=== PATIENT | male | born 1960 | race Caucasian/White ===

== ENCOUNTER 2017-07-12 04:42 | Emergency (ER) | payer OTHER, MEDICAID ==
[~2017-07-12] VITALS: Ht 177.8 cm; Wt 95.0 kg
[~2017-07-12 04:42] MED LIST: LISI-363 PO; NAPR500 PO; OXYC20TA17 PO; ROBA750T3 PO
[2017-07-12 04:44] VITALS: BP 146/89; PULSE 84; RESP 16; TEMP 97.7; O2SAT 98
[2017-07-12 05:19] VITALS: BP 165/83; PULSE 70; RESP 18; O2SAT 99
--- NOTE | 2017-07-12 05:28 | PD ---
HPI . L flank pain Chief Complaint: Flank/Kidney Pain Time Seen by Provider: 05:08 Travel History International Travel<30 days: No Contact w/Intl Traveler<30days: No Traveled to known affect area: No History of Present Illness HPI Patient is a 57 year old male who presents with a 1 week history of worsening left flank pain. It was gradual in onset and now is constant dull stabbing sensation. The pain is rated 7/10. The pain is made worse with movement and he has not taken anything to make the pain better. He reports no trauma to the area and no heavy lifting, and no rash. He's felt feverish and had some night sweats and chills but no nausea, vomiting, hematuria, urinary discomfort, melena or hematochezia. He has never had prior symptoms, no history of kidney stones. He states he had a heart cath in 2012 that showed damage and has been told he has HTN and Hyperlipidemia but take no medication regularly. He is allergic to acetaminophen. He does not drink alcohol currently and has not smoked in 10 years. [facility] Past Medical History Cardiac Catheterization: Yes (NO STENTS) Cardiovascular Problems: Yes (HTN) COPD: Yes (PT UNSURE OF COPD) Diminished Hearing: No Hypertension: Yes Musculoskeletal: Yes (HERNIATED DISCS C1 C2 C3, L4 L5. SCIATICA. TRANSVERSE PROCESS.) Psychiatric: Yes (PTSD) Myocardial Infarction: Yes (2012?) Past Surgical History Tonsillectomy: Yes Family History Family Myocardial Infarction: Yes (FATHER) Social History Alcohol Use: No Tobacco Use: No ( ) Substance Use: Yes (MARIJUANA) Allergies-Medications (Allergen,Severity, Reaction): Coded Allergies: acetaminophen (Unverified Adverse Reaction, Severe, THROAT LOCKS UP , 07/12) Reported Meds & Prescriptions Reported Meds & Active Scripts Active No Active Prescriptions or Reported Medications Review of Systems Except as stated in HPI: all other systems reviewed are Neg General / Constitutional: Positive: Chills HENT: No: Headaches, Sore Throat, Rhinitis, Rhinorrhea Cardiovascular: No: Chest Pain or Discomfort Respiratory: No: Cough, Shortness of Breath, Wheezing Gastrointestinal: No: Nausea, Vomiting, Diarrhea Genitourinary: Positive: Hesitancy, Dribbling, No: Urgency, Frequency Musculoskeletal: No: Myalgias Skin: No Rash Neurologic: No: Weakness, Dizziness Physical Exam Narrative GENERAL: The patient was examined at bedside. He is alert and oriented 3 and in no acute distress. SKIN: Warm and dry. HEAD: Atraumatic. Normocephalic. EYES: Pupils equal and round. ENT: No nasal bleeding or discharge. Mucous membranes pink and moist. NECK: Trachea midline. CARDIOVASCULAR: Regular rate and rhythm. No murmurs or extra beats RESPIRATORY: No accessory muscle use. Some faint wheezing heard on exam. GASTROINTESTINAL: Abdomen mildly distended with no tenderness to palpation MUSCULOSKELETAL: No obvious deformities. No edema. No CVA tenderness NEUROLOGICAL: Awake and alert. No obvious cranial nerve deficits. Motor grossly within normal limits. Normal speech. PSYCHIATRIC: Appropriate mood and affect; insight and judgment normal. Data Data Last Documented VS Vital Signs Date Time Temp Pulse Resp B/P Pulse Ox O2 Delivery O2 Flow Rate FiO2 07/12/17 05:19 70 18 165/83 99 Room Air 07/12/17 04:44 97.7 Orders Basic Metabolic Panel (Bmp) (07/12/17 05:17) Complete Blood Count With Diff (07/12/17 05:17) Urinalysis - C+S If Indicated (07/12/17 05:17) Ct Abd/Pel W/O Iv Contrast (07/12/17 05:17) Iv Access Insert/Monitor (07/12/17 05:17) Ondansetron Inj (Zofran Inj) (07/12/17 05:30) Sodium Chloride 0.9% Flush (Ns Flush) (07/12/17 05:30) Hydromorphone Pf Inj (Dilaudid Pf Inj) (07/12/17 05:30) Labs Laboratory Tests Test 07/12/17 07/12/17 05:40 05:51 Urine Color YELLOW Urine Turbidity CLEAR Urine pH 5.5 Urine Specific [place] 1.011 Urine Protein NEG mg/dL Urine Glucose (UA) NEG mg/dL Urine Ketones NEG mg/dL Urine Occult Blood NEG Urine Nitrite NEG Urine Bilirubin NEG Urine Urobilinogen LESS THAN 2.0 MG/DL Urine Leukocyte Esterase NEG Urine RBC LESS THAN 1 /hpf Urine WBC LESS THAN 1 /hpf Urine Mucus FEW /lpf Microscopic Urinalysis Comment CULT NOT INDICATED White Blood Count 6.3 TH/MM3 Red Blood Count 5.24 MIL/MM3 Hemoglobin 14.3 GM/DL Hematocrit 42.4 % Mean Corpuscular Volume 80.9 FL Mean Corpuscular Hemoglobin 27.3 PG Mean Corpuscular Hemoglobin 33.8 % Concent Red Cell Distribution Width 14.4 % Platelet Count 268 TH/MM3 Mean Platelet Volume 8.1 FL Neutrophils (%) (Auto) 71.9 % Lymphocytes (%) (Auto) 19.4 % Monocytes (%) (Auto) 6.3 % Eosinophils (%) (Auto) 2.0 % Basophils (%) (Auto) 0.4 % Neutrophils # (Auto) 4.6 TH/MM3 Lymphocytes # (Auto) 1.2 TH/MM3 Monocytes # (Auto) 0.4 TH/MM3 Eosinophils # (Auto) 0.1 TH/MM3 Basophils # (Auto) 0.0 TH/MM3 CBC Comment DIFF FINAL Differential Comment MDM Medical Decision Making Medical Screen Exam Complete: Yes Emergency Medical Condition: Yes Differential Diagnosis UTI, Pyelonephritis, Nephrolithiasis, Musculoskeletal Narrative Course This is a 57 year old male who presented with a 1 week history of worsening left flank pain. Hes had no prior episodes. He will be given pain relief and U/ A and CT abdomen/pelvis. Last Impressions Abdomen/Pelvis CT 07/12/17516 Signed Impressions: Service Date/Time: Friday, July 12, 2017 05:21 - CONCLUSION: 1. Nonobstructing 4 mm calculus left kidney. No hydronephrosis, ureteral calculus or evidence for obstructive uropathy. No acute findings within the abdomen and pelvis. Joshua Inman MD CBC Diagram 07/12/17 05:51 UA is negative. This patient has musculoskeletal left flank pain. Incidentally, he has a left renal stone but no ureteral stone or hydronephrosis. The patient will be discharged home on Motrin and Flexeril for the musculoskeletal left flank pain. He will be discharged home on Flomax because of the hesitancy and dribbling. Diagnosis Primary Impression: Left flank pain Patient Instructions: Flank Pain (ED), General Instructions, Narcotic given in the ED Additional Instructions: Follow-up through primary care provider sometime within the next week or so for recheck Med/Other Pt SpecificInfo: Prescription(s) given Scripts Tamsulosin (Flomax)0.4 Mg Cap0.4 Mg PO HS #30 CAP Ref 0 Prov:Elida Godfrey MD 07/12/17 Cyclobenzaprine (Flexeril)10 Mg Tab10 Mg PO TID #90 TAB Ref 0 Prov:Elida Godfrey MD 07/12/17 Ibuprofen 800 Mg [id number] Mg PO Q8H PRN (Pain/Inflammation) #60 TAB Ref 0 Prov:Elida Godfrey MD 07/12/17 Disposition: 01 DISCHARGE HOME Condition: Stable Elida Godfrey MD Jul 12, 2017 05:28
[2017-07-12] MEDS ORDERED: ONDANSETRON HCL 4 MG/2 ML VIAL IVP ONE (05:30)
[2017-07-12] MEDS ORDERED: HYDROmorphone HCL PF 1 MG/ML VIAL IVS ONE (05:30)
[2017-07-12] MEDS ORDERED: SODIUM CHLORIDE 0.9% FLUSH 10 ML FLUSH IVF PRN (05:30)
[2017-07-12 05:55] LABS: AUTOMATED NEUTROPHIL # 4.6 TH/MM3 (1.8-7.7); BASOPHIL % 0.4 % (0.0-2.0); EOSINOPHIL # 0.1 TH/MM3 (0-0.4); HEMATOCRIT 42.4 % (39.0-51.0); HEMO FLAGS DIFF FINAL; LYMPH % 19.4 % (9.0-44.0); LYMPHOCYTE # 1.2 TH/MM3 (1.0-4.8); MEAN CELL VOLUME 80.9 FL (80.0-100.0); MEAN CORPUSCULAR HEMOGLOBIN 27.3 PG (27.0-34.0); MEAN CORPUSCULAR HGB CONC 33.8 % (32.0-36.0); MONO % 6.3 % (0.0-8.0); NEUT % 71.9 % (16.0-70.0); PLATELET COUNT 268 TH/MM3 (150-450); RED BLOOD COUNT 5.24 MIL/MM3 (4.50-5.90); RED CELL DISTRIBUTION WIDTH 14.4 % (11.6-17.2); WHITE BLOOD COUNT 6.3 TH/MM3 (4.0-11.0)
[2017-07-12 06:11] LABS: BLOOD, URINE NEG (NEG); COMMENT (UR) CULT NOT INDICATED; CULTURE IF INDICATED CULT NOT INDICATED; GLUCOSE,URINE NEG (NEG); KETONE, URINE NEG (NEG); MUCUS URINE FEW /lpf (OCC); NITRITE,URINE NEG (NEG); PH, URINE 5.5 (5.0-8.5); URINE COLOR YELLOW (YELLW/STRAW)
--- NOTE | 2017-07-12 06:11 | RADRPT ---
EXAM DATE/TIME: 07/12/2017 05:21 [place] COMPARISON: No previous studies available for comparison. INDICATIONS : Left flank pain. ORAL CONTRAST: No oral contrast ingested. RADIATION DOSE: 19.86 CTDIvol (mGy) MEDICAL HISTORY : Cardiovascular disease. Diabetes mellitus type 2. Chronic obstructive pulmonary disease.Hypertension SURGICAL HISTORY : Tonsillectomy. ENCOUNTER: Initial ACUITY: 1 day PAIN SCALE: 7/10 LOCATION: Left flank TECHNIQUE: Volumetric scanning of the abdomen and pelvis was performed. Using automated exposure control and ad justment of the mA and/or kV according to patient size, radiation dose was kept as low as reasonably achievable to obtain optimal diagnostic quality images. DICOM format image data is available electro nically for review and comparison. FINDINGS: Calcified granuloma noted left lung base. No significant abnormality in the liver, spleen, adrenals o r pancreas. Right kidney unremarkable. Nonobstructing 4 mm left renal calculus. 3.2 cm left renal cys t. No free fluid. No bowel obstruction. No adenopathy. CONCLUSION: 1. Nonobstructing 4 mm calculus left kidney. No hydronephrosis, ureteral calculus or evidence for obs tructive uropathy. No acute findings within the abdomen and pelvis. Joshua Inman MD on July 12, 2017 at 6:07 Board Certified Radiologist. This report was verified electronically.
[2017-07-12] MEDS ORDERED: CYCL1TAB29 PO (06:23)
[2017-07-12] MEDS ORDERED: TAMS5CAP PO (06:23)
[2017-07-12] MEDS ORDERED: IBUP800T23 PO (06:23)
[2017-07-12 06:36] VITALS: BP 158/73
[2017-07-12 06:37] LABS: BICARBONATE 27.1 MEQ/L (21.0-32.0); POTASSIUM 3.5 MEQ/L (3.5-5.1)
== END 2017-07-12 06:59 | disposition home or self-care (01) ==
LOC: NEPC 04:42
DX: R10.12 Left upper quadrant pain (principal); N20.0 Calculus of kidney; I10 Essential (primary) hypertension; F43.10 Post-traumatic stress disorder, unspecified; R39.11 Hesitancy of micturition
CPT/HCPCS: 74176; 80048; 81001; 85025; 96374; 96375; 99284; J1170; J2405